=== PATIENT | female | born 1940 | race Caucasian/White ===

== ENCOUNTER → 2016-08-12 | Outpatient (CLI) | payer MEDICARE, BC ==
[2016-03-09 13:00] VITALS: BP 121/63
[~2016-08-12] MED LIST: ASPI-482 PO; CALC-77 PO; CYAN25003 SL; GLUC-46 PO; METO25TA9 PO; OMEP20TA63 PO; POTA20TA82 PO; RIZA10TA PO; TRAM50TA PO
[2016-08-12 07:20] LABS: CREATININE 1.4 mg/dL (0.6-1.0); GFR 36.7
== END | disposition home or self-care (01) ==
LOC: LAB 06:35
PROVIDERS: ATTEND Psychiatry & Neurology Neurology
DX: R56.9 Unspecified convulsions (principal); C64.1 Malignant neoplasm of right kidney, except renal pelvis
CPT/HCPCS: 36415; 82565; 82607; 82947; 84443; 84520

== ENCOUNTER → 2016-08-19 | Outpatient (CLI) | payer MEDICARE, BC ==
[2016-03-09 13:00] VITALS: BP 121/63
--- NOTE | 2016-08-19 11:09 | RAD ---
PROCEDURE Brain MRI without contrast. HISTORY Seizures. Renal cell carcinoma. TECHNIQUE Multiplanar and multi sequence magnetic resonance imaging of the brain was performed without contrast. Contrast could not be administered due to renal insufficiency at the time of the exam. COMPARISON Head CT dated 03/25/2016. FINDINGS There is no restricted diffusion to suggest acute or subacute infarction. There is no susceptibility effect to suggest hemorrhage. There is no mass effect or midline shift. There is no hydrocephalus. No suspicious white matter lesion is seen. There are findings consistent with lens surgery. The paranasal sinuses are unremarkable. There is a small amount of fluid within the right mastoid air cells. There are normal flow voids within the cerebral vessels. There is no heterotopia or malformation of cortical development. The hippocampi by demonstrate symmetric size and signal. IMPRESSION 1. No acute intracranial finding or evidence of an epileptogenic lesion. 2. Given a history of renal cell carcinoma, note is made that evaluation for small intracranial metastases is limited in the absence of contrast. However, there is no suspicious signal abnormality on noncontrast images to suggest metastatic disease. Electronically signed by: Daysi Dinh (Aug 19, 2016 11:08:13)
--- NOTE | 2016-08-19 15:34 | EEG ---
DATE OF SERVICE: 08/19/2016 EEG NUMBER: [id number]. OBJECTIVE: This is a 76-year-old female patient with history of seizure. She has a history of seizure or seizure-like episodes. EEG was requested to evaluate the seizure activity. METHOD: Twenty electrodes were applied according to the international 10-20 electrode placement system. EKG monitoring, hyperventilation, intermittent photic stimulation, and monopolar and bipolar montages are routinely utilized. The record was obtained on a digital system with video monitoring. FINDINGS: 1. Background: The patient was recorded in the awake and drowsy states. No sleep state was recorded. The overall background amplitude is 10-20 microvolts. A posterior dominant rhythm of 8-9 Hz is observed. 2. Abnormalities: No specific epileptiform discharge or electrographic seizure is seen. No focal or diffuse slowing. 3. Activation: Hyperventilation was performed with good efforts and normal response. Intermittent photic stimulation was performed with photic driving. No specific epileptiform discharge or electrographic seizure induced. IMPRESSION: This EEG is within the normal limits of the study for awake and drowsy states. No sleep state was recorded. No focal, lateralizing, specific epileptiform discharges, or electrographic seizure seen. LARRY CHANCE MD DR: UDAY/talita JOB#: [id number] / [id number] CANDIDO
== END | disposition home or self-care (01) ==
LOC: RT 07:55
PROVIDERS: ATTEND Psychiatry & Neurology Neurology
DX: R56.9 Unspecified convulsions (principal); C64.1 Malignant neoplasm of right kidney, except renal pelvis
CPT/HCPCS: 70551

== ENCOUNTER → 2016-11-04 | Outpatient (CLI) | payer MEDICARE, BC ==
[2016-03-09 13:00] VITALS: BP 121/63
== END | disposition home or self-care (01) ==
LOC: RT 09:52
PROVIDERS: ATTEND Psychiatry & Neurology Neurology
DX: R56.9 Unspecified convulsions (principal)
CPT/HCPCS: 95816

== ENCOUNTER → 2017-01-13 | Outpatient (CLI) | payer MEDICARE, BC ==
[2016-03-09 13:00] VITALS: BP 121/63
[~2017-01-13] MED LIST changes: +METO-239 PO; -METO25TA9 PO
--- NOTE | 2017-01-13 11:45 | KCIC ---
MRI of the lumbar spine without contrast 01/13/2017 CLINICAL HISTORY: Worsening low back pain which radiates down the right leg for 3 to 4 months. TECHNIQUE: Unenhanced T1-weighted and T2-weighted sagittal and axial and inversion recovery sagittal images of the lumbar spine were obtained. FINDINGS: The patient appears to have transitional vertebral anatomy. For the purposes of this dictation 5 lumbar vertebrae have been assumed. The last well-defined lumbar-appearing disc space will be referred to as L5-S1. A hypoplastic disc is seen at S1-2. Mild S-shaped curvature of the thoracolumbar spine is seen. Degenerative signal changes are seen involving all of the disks of the lumbar spine. Degenerative signal changes are seen involving all of the disks of the lower thoracic and throughout the lumbar spine. Degenerative signal changes are seen within the marrow surrounding these discs. Loss of height of the T10-11, T11-12, L3-4, L4-5 and L5-S1 discs is noted. Hemangiomas are seen involving the L1 and L2 vertebral bodies. These measure 8 mm to 1.5 cm in size. The conus medullaris is normal morphology, position, and signal characteristics. A 9 mm perineural cyst is seen within the inferior aspect of the sacral spinal canal. At the T10-11 disc space there is a mild generalized disc bulge. This is eccentric to the right. Degenerative changes are seen involving the facet joints, right greater than left. These findings do not result in significant central spinal canal stenosis. Mild right neural foraminal stenosis is seen. At the T11-12, T12-L1 and L1-2 disc spaces there are mild generalized disc bulges. Degenerative changes are seen involving the facet joints bilaterally. These findings do not result in significant central spinal canal or neural foraminal stenosis. At the L2-3 disc space there is a mild to moderate generalized disc bulge. Superimposed on this disc bulge is a central/left paracentral focal disc protrusion. This measures 3 mm in AP diameter. Degenerative changes are seen involving the facet joints bilaterally. There is moderate ligamentum flavum hypertrophy bilaterally. These findings when combine result in mild to moderate left greater than right central spinal canal stenosis. No neural foraminal stenosis is seen. At the L3-4 disc space there is a mild to moderate generalized disc bulge. Degenerative changes are seen involving the facet joints bilaterally. There is moderate ligamentum flavum hypertrophy bilaterally. These findings when combined do not result in significant central spinal canal or neural foraminal stenosis. At the L4-5 disc space there is a mild to moderate generalized disc bulge. This is eccentric to the left. Degenerative changes are seen involving the facet joints bilaterally. There is moderate to severe ligamentum flavum hypertrophy bilaterally. These findings result in mild to moderate central spinal canal stenosis. No neural foraminal stenosis is seen. Incidental note is made of a 9 mm perineural cyst involving the right L4 nerve root. At the L5-S1 disc space there is a mild to moderate generalized disc bulge. This is eccentric to the left. Degenerative changes are seen involving the facet joints bilaterally. There is mild ligamentum flavum hypertrophy bilaterally. These findings when combined do not result in significant central spinal canal stenosis. Mild bilateral neural foraminal stenosis is seen. IMPRESSION: The changes of degenerative disc disease are seen throughout the lumbar spine. These findings result in mild to moderate left greater than right central spinal canal stenosis at L2-3 and mild to moderate central spinal canal stenosis at L4-5. Mild bilateral neural foraminal stenosis is seen at L5-S1. Mild right neural foraminal stenosis is seen at T10-11. Electronically signed by: Reilly Wharton MD (01/13/2017 11:42 AM) [facility]
== END | disposition home or self-care (01) ==
LOC: KCIC MRI 08:19
PROVIDERS: ATTEND Orthopaedic Surgery
DX: M51.16 Intervertebral disc disorders with radiculopathy, lumbar region (principal); M48.06 Spinal stenosis, lumbar region
CPT/HCPCS: 72148

== ENCOUNTER → 2017-06-29 | Outpatient (CLI) | payer MEDICARE, BC ==
[2017-06-29 09:43] LABS: ANION GAP 10 (6-14); CARBON DIOXIDE 28 mmol/L (21-32); CHLORIDE 108 mmol/L (98-107); CHOLESTEROL 194 mg/dL (0-200); HDLC 64 mg/dL (40-60); LDLC 118 mg/dL (0-100); NON-HDL CHOLESTEROL 130 mg/dL (0-129); POTASSIUM 4.6 mmol/L (3.5-5.1); SODIUM 146 mmol/L (136-145); TRIGLYCERIDES 58 mg/dL (0-150); VLDLC 12 mg/dL (0-40)
== END | disposition home or self-care (01) ==
LOC: LAB 08:53
DX: R55 Syncope and collapse (principal); E78.5 Hyperlipidemia, unspecified; E67.3 Hypervitaminosis D
CPT/HCPCS: 36415; 80051; 80061; 82306

== ENCOUNTER → 2017-07-06 | Outpatient (CLI) | payer MEDICARE, BC | END | disposition home or self-care (01) | LOC: RT 07:44 | DX: R56.9 Unspecified convulsions (principal) | CPT/HCPCS: 95816 ==

== ENCOUNTER 2019-03-02 08:28 | Day surgery (SDC) | payer MEDICARE, BC ==
[~2019-03-02] VITALS: Ht 149.9 cm; Wt 68.5 kg
[~2019-03-02 08:28] MED LIST changes: +DICL100G18 TP; +HYDROmorphone 2 MG/ML VIAL IV PRN; +IV RINGERS,LACTATED 1000ML 1,000 ML IV SCH; +LIDOCAINE 2% PF 5 ML VIAL. ONE; +MORPHINE SULFATE 2 MG/ML VIAL. IV PRN; +ONDANSETRON PF 4 MG/2 ML VIAL. IV PRN; +PROCHLORPERAZINE 10 MG/2 ML VIAL. IV PRN; +PROPOFOL 20 ML IV ONE; +ROCURONIUM 100 MG/10 ML VIAL. ONE; +ROCURONIUM 50 MG/5 ML VIAL. ONE; +SUCCINYLCHOLINE 200 MG/10 ML VIAL. ONE; +fentaNYL PF VIAL 100 MCG/2 ML VIAL IV PRN; +fentaNYL PF VIAL 100 MCG/2 ML VIAL ONE
[2019-03-02 09:26] LABS: CALCIUM 9.1 mg/dL (8.5-10.1); CREATININE 1.3 mg/dL (0.6-1.0); GFR 39.6; POTASSIUM 3.8 mmol/L (3.5-5.1)
[2019-03-02 09:29] LABS: BASO % 1 % (0-3); EOS # 0.2 x10^3/uL (0.0-0.7); EOS % 4 % (0-3); HEMATOCRIT 39.2 % (36.0-47.0); HEMOGLOBIN 12.9 g/dL (12.0-15.5); LYMPH # 1.1 x10^3/uL (1.0-4.8); LYMPH % 28 % (24-48); MEAN CORPUSCULAR HEMOGLOBIN 30 pg (25-35); MEAN CORPUSCULAR HGB CONC 33 g/dL (31-37); MEAN CORPUSCULAR VOLUME 92 fL (79-100); MONO # 0.3 x10^3/uL (0.0-1.1); MONO % 8 % (0-9); NEUT # 2.3 x10^3/uL (1.8-7.7); NEUT % 59 % (31-73); PLATELET COUNT 169 x10^3/uL (140-400); RED BLOOD COUNT 4.27 x10^6/uL (3.50-5.40); RED CELL DISTRIBUTION WIDTH 14.1 % (11.5-14.5); WHITE BLOOD COUNT 3.9 x10^3/uL (4.0-11.0)
[2019-03-02] MEDS ORDERED: HYDR-3165 PO (10:24)
--- NOTE | 2019-03-02 10:26 | DISCH ---
DISCHARGE INSTRUCTIONS Condition on Discharge Condition on Discharge: Stable Activity After Discharge Activity Instructions for Disc: Activity as tolerated Weight Bearing Status after Di: As tolerated Diet after Discharge Diet after Discharge: Regular Wound Incision Care Wound/Incision Care: Ice to area for comfort, Change dressing (May remove dressing in 2 days made then replace with Band-Aids and may shower no soaking until sutures removed) Contacting the after DC Call your doctor for: Concerns you may have Follow-Up Follow up with: Dr. Dinh 10 days PERRY DINH MD Mar 02, 2019 10:26
[2019-03-02] MEDS ORDERED: DEXAMETHASONE SOD PHOS 4 MG/ML VIAL ONE (10:32)
[2019-03-02] MEDS ORDERED: DESFLURANE 16 TO 30 MINUTES. IH ONE (10:32)
[2019-03-02] MEDS ORDERED: ONDANSETRON PF 4 MG/2 ML VIAL. ONE (10:32)
[2019-03-02] MEDS ORDERED: HYDROcodone/APAP 7.5/325MG 1 TAB TABLET PO ONE (12:00)
[2019-03-02 12:20] VITALS: BP 155/80
--- NOTE | 2019-03-02 16:30 | PDOC4 ---
Operative Note Operative Note Date of surgery: 03/02/2019 Preoperative diagnosis refractory trochanteric bursitis right hip Postoperative diagnosis: Same Operative procedure: Right hip arthroscopy release of iliotibial band and debridement trochanteric bursa Surgeon: Fabrizio Anesthesia: Gen. Estimated blood loss: 20 mL Complications: None Operative indications:Ghazal is a very active 79-year-old female who is undergone multiple injections and ongoing nonoperative treatment for right hip trochanteric bursitis and has had recurrence after each and less than last time of affect of this after the injections as well she continues to be limited in her activities of daily living as well as laying on the hip at night we talked about the possibility of vertical release of the iliotibial band debridement of the trochanteric bursa and the rationale for that procedure possibility of continued pain infection nerve or blood vessel damage medical or other anesthetic complications among others all her questions were answered she wishes to proceed with surgical evaluation and treatment. Operative text: Patient was identified procedure verified patient placed in the supine position on the operating table. After adequate amounts of general anesthesia were administered she was placed decubitus with right side up and all bony prominences well-padded. The right hip was prepped and draped in standard sterile fashion and after timeout was performed a spinal needle was localized over the most prominent area of the greater trochanter and arthroscopy portals were placed longitudinally superior and inferior to the greater trochanter and the iliotibial band was exposed with the trocar and bipolar electrocautery. The iliotibial band was divided from just above the tip of the greater trochanter down below its most prominent aspect until the vastus lateralis fascia was visualized the iliotibial band opened up widely the underlying trochanteric bursa was debrided and was noted to have some mild residual Depo-Medrol from a previous injection. Hip was taken through its full range of motion and the pressure on the bursa from the iliotibial band verified to be released in all planes. Arthroscopic fluid was drained portals closed with nylon suture sterile dressings were applied patient was returned recovery room in stable condition having tolerated procedure well PERRY CHOI MD Mar 02, 2019 16:30
== END 2019-03-02 13:01 | disposition home or self-care (01) ==
LOC: SURG 08:28
PROVIDERS: ATTEND Orthopaedic Surgery
DX: M70.61 Trochanteric bursitis, right hip (principal); G43.909 Migraine, unspecified, not intractable, without status migrainosus; G47.30 Sleep apnea, unspecified; K21.9 Gastro-esophageal reflux disease without esophagitis; K44.9 Diaphragmatic hernia without obstruction or gangrene; E66.9 Obesity, unspecified; Z68.30 Body mass index [BMI] 30.0-30.9, adult; Z90.49 Acquired absence of other specified parts of digestive tract; Z90.5 Acquired absence of kidney; Z98.42 Cataract extraction status, left eye; Z98.41 Cataract extraction status, right eye; Z90.710 Acquired absence of both cervix and uterus; Z85.53 Personal history of malignant neoplasm of renal pelvis; Z96.1 Presence of intraocular lens
CPT/HCPCS: 29862; 29999; 36415; 80048; 85025; A7015; J0330; J0690; J1100; J2001; J2405; J2704; J3010

== ENCOUNTER → 2019-05-04 | Outpatient (CLI) | payer MEDICARE, BC ==
[~2019-05-04] MED LIST changes: +HYDR-3165 PO; -HYDROmorphone 2 MG/ML VIAL IV PRN; -IV RINGERS,LACTATED 1000ML 1,000 ML IV SCH; -LIDOCAINE 2% PF 5 ML VIAL. ONE; -MORPHINE SULFATE 2 MG/ML VIAL. IV PRN; -ONDANSETRON PF 4 MG/2 ML VIAL. IV PRN; +POTA20TA4 PO; -POTA20TA82 PO; -PROCHLORPERAZINE 10 MG/2 ML VIAL. IV PRN; -PROPOFOL 20 ML IV ONE; -ROCURONIUM 100 MG/10 ML VIAL. ONE; -ROCURONIUM 50 MG/5 ML VIAL. ONE; -SUCCINYLCHOLINE 200 MG/10 ML VIAL. ONE; -fentaNYL PF VIAL 100 MCG/2 ML VIAL IV PRN; -fentaNYL PF VIAL 100 MCG/2 ML VIAL ONE
--- NOTE | 2019-05-04 11:05 | KCIC ---
MRI Lumbar Spine without contrast History: Right lumbar radiculopathy, continued right hip and leg pain Technique: Multiplanar, multi sequential noncontrast MR imaging was performed of the lumbar spine. Comparison: January 13, 2017 Findings: There again appears to be transitional anatomy. Most inferior fully formed intervertebral disc space considered L5-S1 as for previous exam, rudimentary intervertebral disc space at what is considered S1-S2. Lumbar vertebral body stature is maintained. Conus terminates at L1-L2. There are again hemangiomas of L1 and L2, also tiny focus of increased STIR signal of the posterior T11 vertebral body unchanged. There is likely Tarlov cyst at S3 about 0.8 cm cc. There is again fairly advanced degenerative disc disease at L5-S1 more eccentric to the left at L4-5, to a somewhat lesser degree at L3-4 and L2-3. There is variable degenerative endplate change greatest at L4-5. There is no significant marrow edema. There is now negligible anterior spondylolisthesis at L4-5. There is mild dextroscoliosis centered upon the L3-4 level. Right kidney is not seen. T10-11: There is again minimal disc osteophyte complex. There is buckling of the ligamentum flavum and facet degenerative change. There is mild narrowing of the right lateral recess likely unchanged. There is moderate narrowing of the right neural foramen. T11-12: There is very minimal disc osteophyte complex and protrusion, spinal canal and neural foramina overall adequate. There is mild buckling of the ligamentum flavum. T12-L1: Neural foramina and spinal canal are adequate. There is mild buckling of the ligamentum flavum. L1-L2: There is now very shallow about 1 to 2 mm AP protrusion. There is mild to moderate buckling of the ligamentum flavum and mild facet hypertrophic change. Spinal canal and neural foramina are adequate. L2-L3: There is again disc osteophyte complex and about 2 mm AP bulge. There is moderate buckling of the ligamentum flavum and facet hypertrophic change. There is again mild narrowing of the far left lateral recess, somewhat increased mild narrowing of the far right lateral recess. There is a similar degree of mild attenuation of the thecal sac centrally. There is mild narrowing of the left neural foramen, right neural foramen adequate. L3-L4: There is again posterior bulge about 3 mm AP. There is mild buckling of the ligamentum flavum. There is somewhat increased mild narrowing of the far left lateral recess, similar minimal narrowing the far right lateral recess. Neural foramina are overall adequate. L4-L5: There is again minimal disc osteophyte complex. There is again moderate buckling of the ligamentum flavum and mild facet degenerative change greater on the right. There is a similar degree of mild narrowing of the posterior aspects of the lateral recesses bilaterally, central canal not significantly narrowed. There is mild narrowing of the left neural foramen, right neural foramen adequate. There is again cystic focus in the left neural foramen likely due to nerve root sleeve cyst. L5-S1: There is again very minimal disc osteophyte complex. There is mild buckling of the ligamentum flavum and facet into change. There is similar degree of mild narrowing of the far left lateral recess from posteriorly. There is again moderate narrowing of the left neural foramen with contact of the exiting left L5 nerve root by disc osteophyte complex and also posteriorly by facet, minimal narrowing of the right neural foramen. Impression: 1. There is again transitional anatomy as described, most inferior fully formed intervertebral disc space considered L5-S1. There is now negligible anterior spondylolisthesis at what is considered L4-5. There is degenerative disc disease greatest at L4-5 and L5-S1, also multilevel lumbar spondylosis. There is variable mild lateral recess stenosis as described. There is neural foramina compromise as stated greatest on the left at L5-S1 and on the right at T10-11. 2. Right kidney is not seen. Electronically signed by: Saúl Hassan MD (05/04/2019 11:03 AM) [facility]
== END | disposition home or self-care (01) ==
LOC: KCIC MRI 08:59
PROVIDERS: ATTEND Orthopaedic Surgery
DX: M43.16 Spondylolisthesis, lumbar region (principal); M51.17 Intervertebral disc disorders with radiculopathy, lumbosacral region; M51.37 Other intervertebral disc degeneration, lumbosacral region; M25.78 Osteophyte, vertebrae; M48.07 Spinal stenosis, lumbosacral region; M47.26 Other spondylosis with radiculopathy, lumbar region
CPT/HCPCS: 72148

== ENCOUNTER → 2019-06-04 | Outpatient (CLI) | payer MEDICARE, BC ==
[~2019-06-04] MED LIST changes: +IOHEXOL 180 MG/ML 10 ML VIAL. ONE; +PHYT500C PO; +VIT1TABL34 PO; +methylPREDNISolone ACETATE 40 MG/ML VIAL. ONE; +methylPREDNISolone ACETATE 80 MG/ML VIAL. ONE
--- NOTE | 2019-06-04 22:43 | PAIN ---
DATE OF SERVICE: 06/04/2019 INITIAL CONSULTATION FOR PAIN CLINIC CHIEF COMPLAINT: Low back and right greater than left lower extremity pain. HISTORY OF PRESENT ILLNESS: This is a 79-year-old female who presents with history of pain in the low back and bilateral lower extremities, worse on the right, mostly in the posterior gluteus, posterior thigh, posterior calf, radiating into the gluteus and calf on the left as well, but less frequently. The patient reports it is mostly noticeable on the right side, worse with walking, standing, changing positions that awaken her from sleep at night at least once a night on most nights, but not every night. The patient reports it does not affect her bowel or bladder control, but does affect her ability to walk. She is not using any assistive devices, however. The patient reports no loss of motor function, but significant fatigability to lower extremities. Describes the pain as throbbing and constant across the low back, shooting and tingling radiating into the lower extremities, mostly on the right side as noted, but also on the left. The patient did have MRI scan of the lumbar spine showing transitional anatomy with spondylolisthesis and degenerative disk disease, greatest at L4-L5 and L5-S1, multilevel lumbar spondylosis, mild lateral recess stenosis as well and neural foraminal compromise stated greatest on the left at L5-S1 on the right at T10-T11. The patient rates her disability from 0-10, 10 being the worst, 3 with family home responsibilities and social activity, 0 with recreation, occupational and sexual behavior and life support activities and 1 with self-care activities. The patient reports no loss of motor function, but significant fatigability, especially with walking, standing, changing positions, better with sitting or lying down, again waking her from sleep, maybe once a night, but not every night. The patient reports no history of any injury or accident. She is aware of just gradually increasing over time. She had an IT band procedure done with her orthopedic surgeon, which did not help the pain significantly on the right hip as well. PAST MEDICAL HISTORY: Significant for kidney cancer in 2015, status post nephrectomy; history of some arthritis, otherwise the patient has been in fairly good health. PAST SURGICAL HISTORY: Previous surgery include right nephrectomy, previous hysterectomy, arthroscopic knee surgeries, right breast biopsy, left heel surgery, cataract extractions. CURRENT MEDICATIONS: Include glucosamine, vitamin B12, calcium, Prilosec, potassium, phytosterol and multivitamins. ALLERGIES: The patient has no known drug allergies. FAMILY HISTORY: Significant for no major medical problems or conditions that she lists. SOCIAL HISTORY: The patient does not drink alcohol, does not smoke. Denies any illegal, illicit or recreational drugs. She is , lives with her spouse, lives locally in [place], [place]. REVIEW OF SYSTEMS: The patient's review of systems is positive for those items mentioned in history of present illness. All systems reviewed and otherwise negative. It is complete, full and well documented on the patient's chart. PHYSICAL EXAMINATION: VITAL SIGNS: The patient's blood pressure is 163/85, pulse is 75, respirations 18, temperature is 98.0 Fahrenheit, height is 5 feet, weight is 152 pounds. GENERAL: The patient is awake, alert, oriented, appropriate, very pleasant demeanor. HEENT: Normocephalic, atraumatic. Extraocular movements are intact and symmetrical. Oral cavity: Mucous membranes moist and pink. Dentition is intact. NECK: Shows anterior throat supple without palpable lymphadenopathy noted. Swallow reflex symmetrical. CHEST: Shows normal on inspection. Breath sounds are clear bilaterally. HEART: Shows S1, S2 clear. No murmurs auscultated. ABDOMEN: Soft, nontender, nondistended. No palpable organomegaly is noted. No rebound or guarding demonstrated. BACK: Shows spine grossly in the midline. Normal appearing thoracic kyphosis and lumbar lordotic curvature is slightly flattened. Lumbar paraspinous muscle shows symmetrical on inspection, with palpation shows some moderate tenderness diffusely bilaterally and diffusely without significant radiation. The patient shows no tenderness over the spinous processes, sacrum or sacroiliac regions with direct palpation. The patient has good rotational motion of lumbar spine, both laterally as well as extension and flexion without significant pain reported. EXTREMITIES: The patient's lower extremities show deep tendon reflexes at 2+ in the patellar, 1+ tendo-calcaneus tendons. Motor exam is approximately 4 on a scale of 5 on the right with dorsiflexion, extension, quadriceps and hamstring flexion and 5/5 on the left. Peripheral pulses are 1+ posterior tibia. No peripheral edema is noted bilaterally. Lower extremities are warm and dry to touch, equal in color and appearance. Straight leg raise noted to be positive bilaterally about 40-45 degrees, decreased with knee flexion, slightly more tender on the right than the left, but present bilaterally. Gaenslen's and Stanislaw's maneuvers are grossly negative bilaterally as well. The patient is able to stand, stand on her toes without significant difficulty or loss of balance, walks with a normal-appearing gait, does not appear to favor the right or left lower extremity significantly, not using any assistive devices to ambulate. SKIN: Shows warm and dry, good turgor. No sores, rashes or bruises throughout. IMPRESSION: 1. This is a 79-year-old female with approximately 6-month history of increasing pain, low back, right greater than left lower extremity, present in a radicular fashion bilaterally. 2. MRI scan of lumbar spine as noted. 3. Previous nephrectomy, status post renal cell carcinoma. PLAN: Options were discussed with the patient including conservative medical management, physical therapies and interventional techniques. She would like to proceed with interventional technique. We discussed a lumbar epidural steroid injection using description as well as anatomical models to describe the procedure. Risks were discussed including but not limited to bleeding, infection, possibility of epidural hematoma, subsequent neurological compromise, dural puncture, headaches, spinal cord and/or nerve damage, side effects of steroid medication and poor results regarding pain control. The patient understands and wished to proceed. The patient will return to clinic in approximately 2 weeks for followup. She was counseled as to return appointment, activity level and side effects to be aware of. DIAGNOSES: Lumbar radiculopathy with lumbar degenerative disk disease and lumbar spinal stenosis. PROCEDURE: Lumbar epidural steroid injection, translaminar approach at L5-S1 level using C-arm fluoroscopic guidance under sterile prep and drape using local anesthetic. MEDICATION INJECTED: A total of 120 mg Depo-Medrol plus 10 mL of preservative-free normal saline and 2 mL of contrast. CONDITION AT DISCHARGE: Stable. The patient tolerated procedure well, had no complications. YVONNE NUNEZ MD DR: MARISA/talita JOB#: [id number] / [id number] DARRYL Booker MD
== END ==
LOC: PNCL 09:02
PROVIDERS: ATTEND Anesthesiology
DX: M51.16 Intervertebral disc disorders with radiculopathy, lumbar region (principal); Z85.528 Personal history of other malignant neoplasm of kidney; Z87.39 Personal history of other diseases of the musculoskeletal system and connective tissue; Z90.710 Acquired absence of both cervix and uterus; Z98.42 Cataract extraction status, left eye; Z98.41 Cataract extraction status, right eye; Z96.1 Presence of intraocular lens
CPT/HCPCS: 62323; J1030; J1040; Q9965

== ENCOUNTER → 2019-06-18 | Outpatient (CLI) | payer MEDICARE, BC ==
--- NOTE | 2019-06-18 10:12 | PAIN ---
DATE OF SERVICE: 06/18/2019 PROGRESS NOTE FOR PAIN CLINIC DIAGNOSES: Lumbar radiculopathy with lumbar degenerative disk disease, lumbar spinal stenosis. HISTORY OF PRESENT ILLNESS: The patient is a 79-year-old female who returns for followup status post lumbar epidural steroid injection x 1. The patient reports about 75% improvement overall in the low back and especially in the right lower extremity, doing much better. The patient reports increasing her activity with greater ease and comfort, walking greater distances, doing work and household activities with much greater comfort and traveling with better ease. The patient reports the pain is a 4 on a scale of 10 at its worst, 3 on average and a 2 at its least over the past week and is a 2 today. The patient reports it is aching, becoming constant in the low back, worse with standing, better with sitting or lying down, does not awaken her from sleep. PHYSICAL EXAMINATION: VITAL SIGNS: The patient's blood pressure 147/76, pulse 69, respirations 18, temperature 97.9 degrees Fahrenheit, height is 5 feet, weight is 154 pounds. GENERAL: The patient is awake, alert, oriented, appropriate, very pleasant demeanor. The patient is accompanied by her . HEENT: Shows normocephalic, atraumatic. Extraocular movements are intact and symmetrical. Oral cavity: Mucous membranes moist and pink. Dentition is intact. NECK: Shows anterior throat supple without palpable lymphadenopathy noted. Swallow reflex symmetrical. CHEST: Shows normal on inspection. Breath sounds are clear bilaterally. HEART: Shows S1, S2 clear. No murmurs auscultated. ABDOMEN: Soft, nontender, nondistended. BACK: Shows spine grossly in the midline. Normal appearing thoracic kyphosis and some mild lumbar lordotic curvature flattening. Lumbar paraspinous muscle shows symmetrical on inspection, on palpation shows some moderate tenderness diffusely, but only diffusely without radiation. The patient has good rotational motion of lumbar spine without difficulty. EXTREMITIES: Lower extremities show deep tendon reflexes at 2+ in the patellar, 1+ tendo-calcaneus tendons. Motor exam is approximately 4 on a scale of 5 on the right with dorsiflexion and extension, 5/5 on the left. Peripheral pulses are 1+ posterior tibia. No peripheral edema is noted bilaterally. Options were discussed with the patient. The patient's old chart was reviewed as her current medication regimen updated. Current review of systems updated today as well. We will proceed with a lumbar epidural steroid injection today with fluoroscopic guidance under the second in this series. Risks were again discussed including, but not limited to bleeding, infection, possibility of epidural hematoma, subsequent neurological compromise, dural puncture, headaches, spinal cord and/or nerve damage, side effects of steroid medication and poor results regarding pain control. The patient understands and wished to proceed. The patient will return to clinic in approximately 2 weeks for followup. She was counseled on return appointment, activity level and side effects to be aware of. DIAGNOSES: Lumbar radiculopathy with lumbar degenerative disk disease, lumbar spinal stenosis. PROCEDURE: Lumbar epidural steroid injection, translaminar approach at L5-S1 level using C-arm fluoroscopic guidance under sterile prep and drape using local anesthetic. MEDICATION INJECTED: A total of 120 mg Depo-Medrol plus 10 mL of preservative-free normal saline and 2 mL of contrast. CONDITION AT DISCHARGE: Stable. The patient tolerated the procedure well, had no complications. YVONNE NUNEZ MD DR: MARISA/talita JOB#: [id number] / [id number]
== END ==
LOC: PNCL 08:58
PROVIDERS: ATTEND Anesthesiology
DX: M51.16 Intervertebral disc disorders with radiculopathy, lumbar region (principal); M48.061 Spinal stenosis, lumbar region without neurogenic claudication
CPT/HCPCS: 62323; J1030; J1040; Q9965

== ENCOUNTER → 2019-07-09 | Outpatient (CLI) | payer MEDICARE, BC ==
--- NOTE | 2019-07-09 10:00 | PAIN ---
DATE OF SERVICE: 07/09/2019 PROGRESS NOTE FOR PAIN CLINIC DIAGNOSES: Lumbar radiculopathy with lumbar degenerative disk disease, lumbar spinal stenosis. HISTORY OF PRESENT ILLNESS: The patient is a 79-year-old old female who returns for followup status post lumbar epidural steroid injection x 2. The patient reports about 75-80% improvement overall. First, injection was much more significant than the second one, but still improved. The patient reports she has been increased her activity, doing greater distance walking, doing household activities with greater ease and comfort, traveling with greater ease. The patient reports the pain is only a 3 on a scale of 10 at its worst, 3 on average, 2 at its least and is a 3 today in the low back, right lower extremity, posterior gluteus, posterior thigh and calf. The patient reports it is very minimal radiation down to just in the back mostly. The patient reports it does not awaken her from sleep at night. She is sleeping well. She is very pleased with her progress thus far. The patient reports no new motor or sensory deficits, no new bowel or bladder incontinence. PHYSICAL EXAMINATION: VITAL SIGNS: The patient's blood pressure 131/86, pulse 81, respirations 16, temperature 98.1 degrees Fahrenheit, weight is 151 pounds. GENERAL: The patient is awake, alert, oriented, appropriate, very pleasant demeanor. HEENT: Head shows normocephalic, atraumatic. Extraocular movements are intact and symmetrical. Oral cavity: Mucous membranes moist and pink. Dentition is intact. NECK: Shows anterior throat supple without palpable lymphadenopathy noted. Swallow reflex symmetrical. CHEST: Shows normal on inspection. Breath sounds are clear bilaterally. HEART: Shows S1, S2 clear. No murmurs auscultated. ABDOMEN: Soft, nontender, nondistended. No palpable organomegaly is noted. No rebound or guarding demonstrated. BACK: Shows spine grossly in the midline. Normal appearing thoracic kyphosis and minor flattening of lumbar lordotic curvature. Lumbar paraspinous muscle shows symmetrical on inspection, with palpation shows some mild tenderness, but only diffusely without significant radiation. EXTREMITIES: The patient's lower extremities show deep tendon reflexes 2+ in the patellar, 1+ tendo-calcaneus tendons. Motor exam is approximately 4 on a scale 5 on the right, 5/5 on the left with dorsiflexion and extension. Peripheral pulses are 1+ posterior tibia. No peripheral edema is noted bilaterally. Options were discussed with the patient. The patient's old chart was reviewed as her current medication regimen updated. Current review of systems updated today as well. We will proceed with a third in the series of lumbar epidural steroid injection today with fluoroscopic guidance. Risks were again discussed including, but not limited to bleeding, infection, possibility of epidural hematoma, subsequent neurologic compromise, dural puncture, headaches, spinal cord and/or nerve damage, side effects of steroid medication and poor results regarding pain control. The patient understands and wished to proceed. The patient will return to clinic in approximately 2 weeks for followup. She was counseled on return appointment, activity level and side effects to be aware of. DIAGNOSIS: Lumbar radiculopathy with lumbar degenerative disk disease, lumbar spinal stenosis. PROCEDURE: Lumbar epidural steroid injection, translaminar approach at L5-S1 level using C-arm fluoroscopic guidance under sterile prep and drape using local anesthetic. MEDICATION INJECTED: A total of 120 mg Depo-Medrol plus 10 mL of preservative-free normal saline and 2 mL of contrast. CONDITION AT DISCHARGE: Stable. The patient tolerated procedure well, had no complications. YVONNE NUNEZ MD DR: MARISA/talita JOB#: [id number] / [id number]
== END ==
LOC: PNCL 08:57
PROVIDERS: ATTEND Anesthesiology
DX: M51.16 Intervertebral disc disorders with radiculopathy, lumbar region (principal); M48.061 Spinal stenosis, lumbar region without neurogenic claudication
CPT/HCPCS: 62323; J1030; J1040; Q9965

== ENCOUNTER → 2019-08-21 | Outpatient (CLI) | payer MEDICARE, BC ==
[~2019-08-21] MED LIST changes: +BUPIVACAINE MPF 0.25% 10 ML VIAL. ONE; -DICL100G18 TP; +DICL100G54 TP; -methylPREDNISolone ACETATE 40 MG/ML VIAL. ONE
--- NOTE | 2019-08-21 10:16 | PAIN ---
DATE OF SERVICE: 08/21/2019 PROGRESS NOTE FOR PAIN CLINIC DIAGNOSES: Lumbar radiculopathy with lumbar degenerative disk disease, lumbar spinal stenosis and lumbar spondylosis. HISTORY OF PRESENT ILLNESS: The patient is a 79-year-old female who returns for followup status post lumbar epidural steroid injection x 3, most recently on 07/09/2019. The patient reports she did very well for about a month after the injection almost 80% improvement, but the pain returns now into the low back and right hip and is more into the hip and the buttock than into the leg. The patient reports it is more in the back, the right hip, some in the thigh, worse with walking, standing, changing positions, better with sitting or lying down, does not awaken her from sleep at night. The patient reports it is a 4 on a scale of 10 at its worst over the past week, 3 on average, 3 at its least and is sharp, intermittent pain in the low back itself, worse with extension of the lumbar spine, worse with bending, stooping or repetitive motions. The patient is doing a lot of work at home in the garden, doing a lot of jono and jar jelly preparation with she and her and this has been increasing the pain and she has been more active lately. The patient reports initially she was doing much better with bending and long periods of sitting, doing household activities, returning to work activities at home, but now the pain is returning but again somewhat different in the low back and not as much into the leg. PHYSICAL EXAMINATION: VITAL SIGNS: The patient's blood pressure 132/88, pulse 72, respirations 16, temperature 98.0 degrees Fahrenheit, height is 5 feet, weight is 156 pounds. GENERAL: The patient is awake, alert, oriented, appropriate, very pleasant demeanor. HEENT: Shows normocephalic, atraumatic. Extraocular movements are intact and symmetrical. Oral cavity shows mucous membranes are moist and pink. Dentition is intact. NECK: Shows anterior throat supple without palpable lymphadenopathy noted. Swallow reflex symmetrical. CHEST: Shows normal on inspection. Breath sounds are clear to auscultation bilaterally. HEART: Shows S1, S2 clear. No murmurs auscultated. ABDOMEN: Soft, nontender, nondistended. BACK: Shows spine grossly in the midline. Normal-appearing thoracic kyphosis and minor flattening of lumbar lordotic curvature. Lumbar paraspinous muscle shows symmetrical on inspection, with palpation shows some moderate tenderness in the right low lumbar distribution, not to the left. There is no atrophy, hypertrophy, no asymmetry, no trigger points, no radiation of pain. The patient also has increased pain with rotation to the right side, but not to the left and with extension and axial loading of the lumbar spine, more significant pain in the low back itself, better with forward flexion at 45 degrees. EXTREMITIES: The patient's lower extremities show deep tendon reflexes 2+ in the patellar, 1+ tendo-calcaneus tendons. Motor exam is approximately 4 on a scale of 5 on the right with dorsiflexion and extension, 5/5 on the left. Peripheral pulses are 1+ in posterior tibia. No peripheral edema is noted bilaterally. PLAN: Options were discussed with the patient. The patient's old chart was reviewed as her current medication regimen updated. Current review of systems updated today as well. We will proceed with right-sided L4-L5 and L5-S1 facet joint injections today. Risks were discussed including but not limited to bleeding, infection, possibility of epidural hematoma, subsequent neurological compromise, dural puncture, headaches, spinal cord and/or nerve damage, side effects of steroid medication, spread of local anesthetic and numbness as well as poor results regarding pain control. The patient understands and wished to proceed. The patient will return to clinic in approximately 2 weeks for followup. She was counseled on return appointment, activity level and side effects to be aware of. DIAGNOSES: Lumbar radiculopathy with lumbar degenerative disk disease, lumbar spinal stenosis, lumbar spondylosis and lumbosacral spondylosis. PROCEDURE: Right-sided L4-L5 and L5-S1 facet joint injections using C-arm fluoroscopic guidance under sterile prep and drape using local anesthetic. MEDICATION INJECTED: A total of 80 mg Depo-Medrol and total of 2 mL of 0.25% bupivacaine, total of 1 mL Omnipaque contrast. CONDITION AT DISCHARGE: Stable. The patient tolerated procedure well, had no complications. YVONNE NUNEZ MD DR: MARISA/talita JOB#: [id number] / [id number]
== END ==
LOC: PNCL 08:36
PROVIDERS: ATTEND Anesthesiology
DX: M51.16 Intervertebral disc disorders with radiculopathy, lumbar region (principal); M47.816 Spondylosis without myelopathy or radiculopathy, lumbar region; M48.061 Spinal stenosis, lumbar region without neurogenic claudication
CPT/HCPCS: 64493; 64494; J1040; J3490; Q9965

== ENCOUNTER → 2019-09-04 | Outpatient (CLI) | payer MEDICARE, BC ==
--- NOTE | 2019-09-04 10:19 | PAIN ---
DATE OF SERVICE: 09/04/2019 PROGRESS NOTE FOR PAIN CLINIC DIAGNOSES: Lumbar radiculopathy with lumbar degenerative disk disease, lumbar spinal stenosis, lumbar spondylosis, and right sacroiliitis. HISTORY OF PRESENT ILLNESS: The patient is a 79-year-old female who returns for followup status post lumbar epidural steroid injections x 3, which did very well for about a month, about 75% improvement, but the pain returned in her low back. We tried a right-sided facet joint blocks on her last visit, L4-L5 and L5-S1. The patient reports no significant decrease in pain. In fact, the pain was worse for a few days following the injections. The patient reports now the pain is more tolerable, but is still on the right side in the right posterior hip, which is very tender, worse with walking, standing, changing positions, better with sitting or lying down, does not awaken her from sleep at night. The patient reports no new motor or sensory deficits, rates her pain as a 5 on a scale of 10 at its worst over the past week, 4 on average, and 3 at its least and is a 4 today. The patient reports it is aching and dull, constant and tender on the right posterior hip, again worse with changing positions and walking. PHYSICAL EXAMINATION: VITAL SIGNS: The patient's blood pressure 132/83, pulse 80, respirations 18, temperature 98.1 degrees Fahrenheit, height is 5 feet, and weight is 155 pounds. GENERAL: The patient is awake, alert, oriented, appropriate, very pleasant demeanor. HEENT: Shows normocephalic, atraumatic. Extraocular movements are intact and symmetrical. Oral cavity: Mucous membranes moist and pink. Dentition is intact. NECK: Shows anterior throat supple without palpable lymphadenopathy noted. Swallow reflex symmetrical. CHEST: Shows normal on inspection. Breath sounds are clear bilaterally. HEART: Shows S1, S2 clear. ABDOMEN: Soft, nontender, nondistended. BACK: Shows spine grossly in the midline. Normal appearing thoracic kyphosis and some slight flattening of lumbar lordotic curvature. Lumbar paraspinous muscle shows symmetrical on inspection and on palpation, it is very firm throughout the upper, middle and lower distribution of paraspinous muscles bilaterally, but without specific trigger points, without specific radiation, but tender diffusely throughout. The patient has significant tenderness over the right posterior superior iliac spine as well as the superior aspect of the right sacroiliac joint, but the left is nontender. The patient has good rotational motion of lumbar spine, both laterally as well as extension and flexion without significant difficulty. EXTREMITIES: Lower extremities show deep tendon reflexes 2+ in the patellar and 1+ in tendo-calcaneus tendons. Motor exam is approximately 4 on a scale of 5 on the right and 5/5 on the left, dorsiflexion, extension, quadriceps and hamstring flexion. Peripheral pulses are 1+, posterior tibia. No peripheral edema bilaterally. Options were discussed with the patient. The patient's old chart was reviewed as her current medication regimen updated. Current review of systems updated today as well. We will proceed with a right sacroiliac joint injection today with fluoroscopic guidance. Risks were again discussed including, but not limited to bleeding, infection, possibility of spread of local anesthetic and numbness, side effects of steroid medication as well as poor results regarding pain control. The patient understands and wished to proceed. The patient will return to clinic in approximately 2 weeks for followup and was counseled on return appointment, activity level and side effects to be aware of. DIAGNOSIS: Right sacroiliitis. PROCEDURE: Right sacroiliac joint injection using C-arm fluoroscopic guidance under sterile prep and drape using local anesthetic. MEDICATION INJECTED: Total of 80 mg of Depo-Medrol plus 0.25% bupivacaine, 3 mL after negative aspiration contrast at 1.5 mL. CONDITION AT DISCHARGE: Stable. The patient tolerated procedure well, had no complications. YVONNE NUNEZ MD DR: MARISA/talita JOB#: [id number] / [id number]
== END ==
LOC: PNCL 08:21
PROVIDERS: ATTEND Anesthesiology
DX: M46.1 Sacroiliitis, not elsewhere classified (principal); M51.16 Intervertebral disc disorders with radiculopathy, lumbar region; M48.061 Spinal stenosis, lumbar region without neurogenic claudication
CPT/HCPCS: G0260; J1040; J3490; Q9965; 27096; 64505